=== PATIENT | female | born 1950 | race Caucasian/White ===

== ENCOUNTER 2017-01-13 00:48 | Inpatient (IN) | payer MEDICARE, MEDICAID ==
[~2017-01-13] VITALS: Ht 154.9 cm; Wt 60.8 kg
[~2017-01-13 00:48] MED LIST: ALBU6.7H INH; AMOX-291 PO; ASPI-496 PO; GABA100C PO; LAMO25TB2 PO; PRED20TA PO; THIO10CA2 PO; TRAM200T17 PO; TRAM50TA2 PO; TRIA1TAB3 PO
[2017-01-13] MEDS ORDERED: SODIUM CHLORIDE FLUSH 10ML SYR IVF ONE (01:30)
[2017-01-13 01:37] LABS: ASPARTATE AMINO TRANSFERASE 25 U/L (15-37); BLOOD UREA NITROGEN 8 mg/dL (7-18)
[2017-01-13 01:43] LABS: IS PT STATUS REG ER OR PRE ER? YES
[2017-01-13] MEDS ORDERED: SODIUM CHLORIDE 0.9% 1,000 ML IV ONE (01:48)
[2017-01-13] MEDS ORDERED: ONDANSETRON ODT 4 MG PO PRN (04:30)
[2017-01-13] MEDS: NICOTINE 14MG/24 HR PATCH.TD24 TD SCH ×2 (04:30→04:45)
[2017-01-13] MEDS: ENOXAPARIN 40 MG/0.4 ML SQ SCH (04:45)
[2017-01-13] MEDS: methylPREDNISolone SOD SUCC 40 MG/ML IVPush SCH ×4 (04:45→22:16)
[2017-01-13 06:44] LABS: IS PT STATUS REG ER OR PRE ER? NO
[2017-01-13 07:36] VITALS: BP 151/98
[2017-01-13] MEDS ORDERED: LAMOTRIGINE 25 MG TABLET PO SCH (09:00)
[2017-01-13] MEDS: THIOTHIXENE 10 MG HOMEMEDPO SCH ×2 (09:00→20:34)
[2017-01-13] MEDS: GABAPENTIN 100 MG CAPSULE PO SCH ×2 (09:03→20:34)
[2017-01-13] MEDS: ASPIRIN 81 MG TABLET EC PO SCH (09:04)
[2017-01-13 13:49] VITALS: BP 126/69
[2017-01-13] MEDS ORDERED: ALBUTEROL SULFATE 2.5 MG/3 ML NPPB PRN (15:00)
[2017-01-13] MEDS: ACETAMINOPHEN 325 MG TABLET PO PRN ×2 (18:10→22:16)
[2017-01-13 20:00] VITALS: BP 159/81
[2017-01-13] MEDS: LAMOTRIGINE 25 MG TABLET PO SCH (22:16)
[2017-01-14 02:44] VITALS: BP 136/70
[2017-01-14] MEDS: NICOTINE 14MG/24 HR PATCH.TD24 TD SCH (04:30)
[2017-01-14] MEDS: ENOXAPARIN 40 MG/0.4 ML SQ SCH (05:03)
[2017-01-14] MEDS: methylPREDNISolone SOD SUCC 40 MG/ML IVPush SCH ×4 (05:03→23:13)
[2017-01-14] MEDS: ACETAMINOPHEN 325 MG TABLET PO PRN ×2 (05:50→16:47)
[2017-01-14 06:09] LABS: ASPARTATE AMINO TRANSFERASE 19 U/L (15-37); BLOOD UREA NITROGEN 14 mg/dL (7-18)
[2017-01-14 07:30] VITALS: BP_SYST 124; BP_SYST 168; BP_DIAS 79; BP_DIAS 90
[2017-01-14] MEDS: THIOTHIXENE 10 MG HOMEMEDPO SCH ×2 (09:00→21:00)
[2017-01-14] MEDS: LAMOTRIGINE 25 MG TABLET PO SCH ×3 (10:22→21:14)
[2017-01-14] MEDS: GABAPENTIN 100 MG CAPSULE PO SCH ×2 (10:22→21:15)
[2017-01-14] MEDS: ASPIRIN 81 MG TABLET EC PO SCH (10:22)
[2017-01-14 16:35] VITALS: BP 155/81
[2017-01-14] MEDS: SODIUM CHLORIDE 0.9% 1,000 ML IV SCH (18:14)
[2017-01-14 19:05] VITALS: BP 164/86
[2017-01-15] MEDS: hydrALAzine 20 MG/ML, 1ML IV PRN ×2 (02:32→12:46)
[2017-01-15 02:34] VITALS: BP 187/105
[2017-01-15] MEDS: NICOTINE 14MG/24 HR PATCH.TD24 TD SCH (04:30)
[2017-01-15] MEDS: methylPREDNISolone SOD SUCC 40 MG/ML IVPush SCH ×2 (05:09→10:34)
[2017-01-15] MEDS: ENOXAPARIN 40 MG/0.4 ML SQ SCH (05:10)
[2017-01-15] MEDS: SODIUM CHLORIDE 0.9% 1,000 ML IV SCH (05:10)
[2017-01-15] MEDS: ACETAMINOPHEN 325 MG TABLET PO PRN ×2 (05:22→12:42)
[2017-01-15 07:00] VITALS: BP 157/82
[2017-01-15] MEDS: LAMOTRIGINE 25 MG TABLET PO SCH (08:45)
[2017-01-15] MEDS: ASPIRIN 81 MG TABLET EC PO SCH (08:45)
[2017-01-15] MEDS: GABAPENTIN 100 MG CAPSULE PO SCH (08:45)
[2017-01-15] MEDS: THIOTHIXENE 10 MG HOMEMEDPO SCH (08:45)
[2017-01-15 09:14] LABS: BLOOD UREA NITROGEN 13 mg/dL (7-18)
[2017-01-15 13:17] VITALS: BP_SYST 126; BP_SYST 184; BP_DIAS 68; BP_DIAS 98
[2017-01-15] MEDS ORDERED: LAMO25TB2 PO (15:45)
[2017-01-15] MEDS ORDERED: FLUT1BLS INH (15:45)
[2017-01-15] MEDS ORDERED: PRED5TAB PO (15:45)
[2017-01-15] MEDS ORDERED: LOSA50TA2 PO (15:54)
== END 2017-01-15 16:50 | disposition home or self-care (01) | DRG 191 ==
LOC: ED 02:04 → EDIP 02:05 → ED 02:10 → 4WST 03:01 → DCLOUNGE 01-15 16:23
PROVIDERS: ADMIT Internal Medicine; ATTEND Internal Medicine
DX: J44.1 Chronic obstructive pulmonary disease with (acute) exacerbation (principal); J96.10 Chronic respiratory failure, unspecified whether with hypoxia or hypercapnia; F32.3 Major depressive disorder, single episode, severe with psychotic features; E87.1 Hypo-osmolality and hyponatremia; E86.0 Dehydration; F17.200 Nicotine dependence, unspecified, uncomplicated; I10 Essential (primary) hypertension; L80 Vitiligo; M85.80 Other specified disorders of bone density and structure, unspecified site; G62.9 Polyneuropathy, unspecified; M19.90 Unspecified osteoarthritis, unspecified site; Z90.710 Acquired absence of both cervix and uterus; Z90.49 Acquired absence of other specified parts of digestive tract; Z98.51 Tubal ligation status; Z87.440 Personal history of urinary (tract) infections
CPT/HCPCS: 36415; 70450; 71010; 80048; 80053; 81003; 83690; 83930; 83935; 84295; 84300; 84484; 85025; 93005; 99284; J1650; J0360; J2920; J7030

== ENCOUNTER 2018-03-04 20:51 | Emergency (ER) | payer MEDICARE, MEDICAID ==
[~2018-03-04] VITALS: Ht 157.5 cm; Wt 65.0 kg
[~2018-03-04 20:51] MED LIST changes: +FLUT1BLS INH; +LOSA50TA2 PO; +PRED5TAB PO
[2018-03-04 20:52] VITALS: BP 107/77
[2018-03-04] MEDS ORDERED: ALBUTEROL SULFATE 2.5 MG/3 ML NPPB ONE (21:30)
== END 2018-03-04 22:25 | disposition home or self-care (01) ==
LOC: ED 21:45
DX: J44.1 Chronic obstructive pulmonary disease with (acute) exacerbation (principal); Z72.9 Problem related to lifestyle, unspecified; F17.200 Nicotine dependence, unspecified, uncomplicated; F32.9 Major depressive disorder, single episode, unspecified; Z90.710 Acquired absence of both cervix and uterus; Z90.89 Acquired absence of other organs
CPT/HCPCS: 93005; 94640; 99283; J7613

== ENCOUNTER 2020-07-05 14:55 | Emergency (ER) | payer MEDICARE, MEDICAID ==
[~2020-07-05] VITALS: Ht 157.5 cm; Wt 50.2 kg
[~2020-07-05 14:55] MED LIST changes: -ALBU6.7H INH; +ALBU6.7H8 INH
--- NOTE | 2020-07-05 15:52 | NUR ---
PT TO ROOM 24 W/ NO GENERAL COMPLAINTS. WILL NOT TALK TO NURSE ABOUT WHAT BROUGHT PT TO ED. SIMPLY STATES "GET ME SOCKS. GIVE ME WATER. I CAN'T PEE FOR YOU. I HAVEN'T DRANK WATER IN DAYS. I NEED BLUE SOCKS I HATE THE COLOR YELLOW". PT REFUSING TO DISCUSS WHAT BROUGHT PT TO ED. DOES NOT ANSWER SI QUESTIONS. PER TRIAGE NOTE PT STATES SHE NEEDS SURGERY ASKED PT IN REGARDS TO THAT SIMPLY STATES "YEAH I SAID THAT A LONG TIME AGO". REFUSING TO ANSWER ANY FURTHER QUESTIONS.
[2020-07-05 16:10] LABS: BASOPHILS % (AUTO) 0 % (0-1); EOSINOPHILS % (AUTO) 0 % (1-7); LYMPHOCYTES % (AUTO) 7 % (22-44); MEAN CORPUSCULAR HEMOGLOBIN 33.1 pg (27.0-34.8); MEAN CORPUSCULAR HGB CONC 33.5 g/dL (32.4-35.8); MEAN PLATELET VOLUME 6.1 fL (7.4-10.4); MONOCYTES % (AUTO) 8 % (2-9); NEUTROPHILS % (AUTO) 85 % (42-75); PLATELET COUNT 478 x10^3/uL (130-400); RED BLOOD COUNT 4.18 x10^6/uL (3.82-5.3); RED CELL DISTRIBUTION WIDTH 13.6 % (9.6-15.2)
[2020-07-05 16:18] LABS: ALBUMIN 3.7 g/dL (3.4-5.0); ANION GAP 5 mmol/L (5-15); CHLORIDE 95 mmol/L (98-107)
[2020-07-05 16:26] LABS: SALICYLATE LEVEL 4.9 mg/dL (2.8-20.0)
--- NOTE | 2020-07-05 16:28 | NUR ---
UA COLLECTED, LABELED AND WALKED TO LAB.
[2020-07-05 16:30] LABS: MD NO
[2020-07-05 16:39] LABS: MICROSCOPIC AUTO
[2020-07-05 16:41] VITALS: BP 150/87
--- NOTE | 2020-07-05 16:41 | NUR ---
PT RESTING ON JAE JOYA MADE AWARE OF NEED TO TALK TO PT.
[2020-07-05 16:48] LABS: AMPHETAMINE SCREEN, URINE Negative (Negative); BARBITURATE SCREEN, URINE Negative (Negative); BENZODIAZEPINE SCREEN, URINE Negative (Negative); CANNABINOID SCREEN, URINE Negative (Negative); COCAINE SCREEN, URINE Negative (Negative); METHADONE SCREEN, URINE Negative (Negative); OPIATE SCREEN, URINE Negative (Negative)
[2020-07-05] MEDS ORDERED: FOSFOMYCIN 3 GM PACKET ONE (17:11)
--- NOTE | 2020-07-05 17:22 | NUR ---
PER ERP DR. TRUDY LIU FOR PT TO [facility]. PT PROVIDED W/ REFERRAL LIST TO [facility] AND PROVIDED W/ TAXI [facility]ER TO [facility]SING HOME. PT UPSET AND WANTS TO STAY IN THE HOSPITAL STATING "PLEASE LET ME STAY. I DON'T WANT TO GO TO THE NURSING HOME. PLEASE LET ME STAY". DISCUSSED W/ PT THAT SHE CANNOT BE ADMITTED UNLESS PT HAVE QUALIFYING MEDICAL FACTORS. PT PROVIDED W/ TAXI VOUCHER, WATER, SNACKS, AND NEW CANE.
[2020-07-05] MEDS ORDERED: FOSFOMYCIN 3 GM PACKET PO ONE (17:30)
== END 2020-07-05 17:33 | disposition home or self-care (01) ==
LOC: ED 17:20
DX: E46 Unspecified protein-calorie malnutrition (principal); J44.9 Chronic obstructive pulmonary disease, unspecified; R45.1 Restlessness and agitation; M19.90 Unspecified osteoarthritis, unspecified site; I10 Essential (primary) hypertension; E87.1 Hypo-osmolality and hyponatremia; F17.200 Nicotine dependence, unspecified, uncomplicated; Z90.89 Acquired absence of other organs; Z98.51 Tubal ligation status; Z68.20 Body mass index [BMI] 20.0-20.9, adult; Z90.710 Acquired absence of both cervix and uterus
CPT/HCPCS: 36415; 80048; 80299; 80307; 80320; 80329; 81001; 82040; 85025; 87086; 99283; G0480